=== PATIENT | female | born 1990 | race Caucasian/White ===

== ENCOUNTER 2016-07-16 05:39 | Emergency (ER) | payer OTHER ==
[2016-07-16] MEDS ORDERED: ONDANSETRON ODT 4 MG TABLET TL STA (05:50)
[2016-07-16] MEDS ORDERED: DICYCLOMINE 10 MG CAPSULE PO STA (05:50)
[2016-07-16] MEDS ORDERED: ONDANSETRON ODT 4 MG TABLET ONE (05:52)
[2016-07-16] MEDS ORDERED: DICYCLOMINE 10 MG CAPSULE PO ONE (05:52)
== END 2016-07-16 06:23 | disposition home or self-care (01) ==
DX: K52.9 Noninfective gastroenteritis and colitis, unspecified (principal)
CPT/HCPCS: 99283; A9270; Q0162